=== PATIENT | female | born 1940 | race Caucasian/White ===

== ENCOUNTER 2018-10-26 08:16 | Day surgery (SDC) | payer OTHER, BC ==
[2018-10-23 17:26] VITALS: BMI 32.9
[2018-10-26 09:23] LABS: BASO % 0.5 % (0-2.0); EOS % 0.9 % (0-4.5); HEMATOCRIT 40.4 % (32.4-45.2); HEMOGLOBIN 13.8 GM/dL (10.7-15.3); LYMPH % 38.5 % (8-40); MCH 30.8 pg (25.7-33.7); MCHC 34.1 g/dl (32.0-36.0); MEAN CELL VOLUME 90.2 fl (80-96); MONO % 8.1 % (3.8-10.2); PLATELET COUNT 209 K/MM3 (134-434); RBC 4.48 M/mm3 (3.60-5.2); RDW 13.1 % (11.6-15.6); WHITE BLOOD COUNT 4.3 K/mm3 (4.0-10.0)
[2018-10-26 09:49] LABS: INR 1.02 (0.83-1.09)
[2018-10-26 13:39] VITALS: TEMP 97.3
[2018-10-26 14:43] VITALS: BP 121/55; PULSE 80
[2018-10-26 15:39] LABS: CSF APPEARANCE CLEAR; CSF COLOR COLORLESS; CSF WBC 2
[2018-10-26 15:52] LABS: BF GLUCOSE (CSF ONLY) 53 mg/dL (40-70)
== END 2018-10-26 14:40 | disposition home or self-care (01) ==
LOC: JRADIR 08:16
PROVIDERS: ATTEND Psychiatry & Neurology Neurology
PROC: 009U3ZX Drainage of Spinal Canal, Percutaneous Approach, Diagnostic (ICD-10-PCS; principal; 2018-10-26)
DX: R26.89 Other abnormalities of gait and mobility (principal)
CPT/HCPCS: 36415; 62270; 62272; 76000-TC-FY; 76098-TC-FY; 82945; 84157; 85025; 85610; 87070; 87205; 87899

== ENCOUNTER 2020-12-21 15:29 | Inpatient (IN) | payer OTHER, BC ==
[2020-12-21] MEDS ORDERED: ACETAMINOPHEN 1000 MG/100 ML VIAL IVPB ONE (16:11)
[2020-12-21] MEDS ORDERED: ACETAMINOPHEN INJECTION 100 ML IVPB ONE (16:32)
[2020-12-21 16:46] LABS: BASO % 2.9 % (0-2.0); EOS % 0.6 % (0-4.5); HEMATOCRIT 38.7 % (32.4-45.2); HEMOGLOBIN 12.5 GM/dl (10.7-15.3); LYMPH % 23.5 % (8-40); MCH 28.8 pg (25.7-33.7); MCHC 32.3 g/dl (32.0-36.0); MEAN PLT VOLUME 8.8 fl (7.5-11.1); MONO % 6.6 % (3.8-10.2); NEUT % 66.4 % (42.8-82.8); PLATELET COUNT 245 10^3/uL (134-434); RBC 4.35 M/mm3 (3.60-5.2); RDW 12.2 % (11.6-15.6); WHITE BLOOD COUNT 5.4 K/mm3 (4.0-10.8)
[2020-12-21 16:52] LABS: BILIRUBIN,TOTAL 0.8 mg/dl (0.2-1); CALCIUM 8.9 mg/dl (8.5-10); CREATININE 0.8 mg/dl (0.55-1.3); MAGNESIUM 2.2 mg/dL (1.8-2.4); TOT PROT 6.5 g/dl (6.4-8.2)
[2020-12-21] MEDS ORDERED: ACETAMINOPHEN 325 MG TABLET (FP) PO PRN (22:57)
[2020-12-22 01:07] VITALS: BMI 26.6
[2020-12-22 08:06] LABS: BASO % 4.2 % (0-2.0); EOS % 1.9 % (0-4.5); HEMATOCRIT 35.5 % (32.4-45.2); HEMOGLOBIN 12.1 GM/dl (10.7-15.3); LYMPH % 38.8 % (8-40); MCH 30.6 pg (25.7-33.7); MEAN PLT VOLUME 9.1 fl (7.5-11.1); MONO % 9.2 % (3.8-10.2); NEUT % 45.9 % (42.8-82.8); PLATELET COUNT 211 10^3/uL (134-434); RBC 3.94 M/mm3 (3.60-5.2); RDW 12.4 % (11.6-15.6); WHITE BLOOD COUNT 3.8 K/mm3 (4.0-10.8)
[2020-12-22 08:31] LABS: ALBUMIN 3.4 g/dl (3.4-5.0); ALK PHOS 57 U/L (45-117); ANION GAP 6 MMOL/L (8-16); CALCIUM 8.7 mg/dl (8.5-10); CHLORIDE 103 mmol/L (98-107); CHOLESTEROL 206 mg/dl (50-200); CO2 27 mmol/L (21-32); CREATININE 0.6 mg/dl (0.55-1.3); GLUCOSE,RANDOM 84 mg/dl (74-106); HDL CHOLESTEROL 65 mg/dl (40-60); LDL CHOLESTEROL (ONLY DFH) 128 mg/dl (5-100); SGOT/AST 13 U/L (15-37); SGPT/ALT 12 U/L (13-61); SODIUM 136 mmol/L (136-145); TOT PROT 5.9 g/dl (6.4-8.2); TRIGLYCERIDES 67 mg/dl (0-150)
[2020-12-22] MEDS: LOSARTAN POTASSIUM 50 MG TABLET PO SCH (09:55)
[2020-12-22] MEDS ORDERED: ACETAMINOPHEN 325 MG TABLET (FP) PO PRN (10:09)
[2020-12-22] MEDS ORDERED: ENOXAPARIN NA (PORCINE) 30 MG/0.3 ML DISP.SYRIN SQ SCH ×2 (10:15→10:30)
[2020-12-22] MEDS ORDERED: ENOXAPARIN NA (PORCINE) 40 MG/0.4 ML DISP.SYRIN SQ SCH (10:30)
[2020-12-22] MEDS: MONTELUKAST NA 10 MG TABLET PO SCH (10:35)
[2020-12-22] MEDS: SODIUM CHLORIDE 1,000 ML IV SCH (12:28)
[2020-12-23 08:26] LABS: CALCIUM 8.8 mg/dl (8.5-10); CREATININE 0.6 mg/dl (0.55-1.3)
[2020-12-23] MEDS: MONTELUKAST NA 10 MG TABLET PO SCH (09:40)
[2020-12-23] MEDS: LOSARTAN POTASSIUM 50 MG TABLET PO SCH (09:40)
[2020-12-23] MEDS: SODIUM CHLORIDE 1,000 ML IV SCH (09:41)
[2020-12-23] MEDS: ENOXAPARIN NA (PORCINE) 40 MG/0.4 ML DISP.SYRIN SQ SCH (16:18)
[2020-12-24 09:50] LABS: BASO % 3.3 % (0-2.0); EOS % 1.8 % (0-4.5); HEMATOCRIT 37.8 % (32.4-45.2); HEMOGLOBIN 12.2 GM/dl (10.7-15.3); LYMPH % 41.1 % (8-40); MCH 29.4 pg (25.7-33.7); MCHC 32.3 g/dl (32.0-36.0); MEAN CELL VOLUME 91.1 fl (80-96); MEAN PLT VOLUME 9.5 fl (7.5-11.1); MONO % 9.8 % (3.8-10.2); PLATELET COUNT 217 10^3/uL (134-434); RBC 4.15 M/mm3 (3.60-5.2); RDW 12.4 % (11.6-15.6); WHITE BLOOD COUNT 4.6 K/mm3 (4.0-10.8)
[2020-12-24] MEDS: ENOXAPARIN NA (PORCINE) 40 MG/0.4 ML DISP.SYRIN SQ SCH (09:53)
[2020-12-24] MEDS: MONTELUKAST NA 10 MG TABLET PO SCH (09:53)
[2020-12-24] MEDS: LOSARTAN POTASSIUM 50 MG TABLET PO SCH (10:30)
[2020-12-24 10:42] LABS: ALBUMIN 3.3 g/dl (3.4-5.0); BILIRUBIN,TOTAL 0.5 mg/dl (0.2-1); CALCIUM 8.7 mg/dl (8.5-10); CREATININE 0.7 mg/dl (0.55-1.3); MAGNESIUM 2.2 mg/dL (1.8-2.4); TOT PROT 5.7 g/dl (6.4-8.2)
[2020-12-25 06:48] VITALS: BP 118/58; PULSE 67; TEMP 97.5
[2020-12-25] MEDS: ENOXAPARIN NA (PORCINE) 40 MG/0.4 ML DISP.SYRIN SQ SCH (09:46)
[2020-12-25] MEDS: LOSARTAN POTASSIUM 50 MG TABLET PO SCH (09:47)
[2020-12-25] MEDS: MONTELUKAST NA 10 MG TABLET PO SCH (09:47)
== END 2020-12-25 11:30 | DRG 312 ==
LOC: FER 15:29 → FM/S 18:00 → UNDOADMOB 18:00 → FER 12-22 10:50 → FM/S 12-22 10:52 → UNDOADMIN 12-22 12:26
PROVIDERS: ADMIT Internal Medicine Cardiovascular Disease; ATTEND Nurse Practitioner Acute Care
DX: R55 Syncope and collapse (principal); I62.03 Nontraumatic chronic subdural hemorrhage; I10 Essential (primary) hypertension; E78.5 Hyperlipidemia, unspecified; K21.9 Gastro-esophageal reflux disease without esophagitis; J44.9 Chronic obstructive pulmonary disease, unspecified; M25.511 Pain in right shoulder
CPT/HCPCS: 36415; 70450-TC; 71046-TC-FY; 72125-TC; 72170-TC-FY; 73030-TC-RT-FY; 73060-TC-RT-FY; 80048; 80053; 80061; 81003; 82550; 82607; 83735; 84443; 84484; 85025; 87086; 93005; 93306-TC; 93880-TC; 97116-GP; 97163-GP; 99285-25; C9803; J0131; U0003; U0005

== ENCOUNTER 2022-03-16 10:49 | Emergency (ER) | payer OTHER, BC ==
[2022-03-16 11:13] VITALS: TEMP 97.3; BMI 29.6
[2022-03-16] MEDS ORDERED: ACETAMINOPHEN 500 MG TABLET (FP) PO ONE (11:35)
[2022-03-16] MEDS ORDERED: ACETAMINOPHEN 500 MG TABLET (FP) ONE (12:43)
[2022-03-16 13:10] LABS: BASO % 0.3 % (0-2.0); EOS % 0.5 % (0-4.5); HEMATOCRIT 38.2 % (32.4-45.2); HEMOGLOBIN 12.8 GM/dL (10.7-15.3); LYMPH % 23.7 % (8-40); MCH 30.8 pg (25.7-33.7); MCHC 33.5 g/dl (32.0-36.0); MEAN CELL VOLUME 91.9 fl (80-96); MEAN PLT VOLUME 8.6 fl (7.5-11.1); NEUT % 69.5 % (42.8-82.8); PLATELET COUNT 252 10^3/uL (134-434); RBC 4.16 M/mm3 (3.60-5.2); RDW 12.4 % (11.6-15.6)
[2022-03-16 13:16] LABS: INR 1.01 (0.83-1.09); PROTHROMBIN TIME (PATIENT) 11.6 SEC (9.7-13.0)
[2022-03-16 13:18] LABS: ACTIVATED PTT 31.4 SECONDS (25.2-36.5)
[2022-03-16 13:24] LABS: EPI CELLS 24 /uL (0-25.1); HYALINE CASTS 1 /uL (0-3.1); URINE APPEARANCE CLEAR; URINE BILIRUBIN NEGATIVE (NEGATIVE); URINE COLOR YELLOW; URINE GLUCOSE (UA) NEGATIVE (NEGATIVE); URINE KETONE NEGATIVE (NEGATIVE); URINE LEUK ESTERASE 2+ (NEGATIVE); URINE NITRITE POSITIVE (NEGATIVE); URINE PROTEIN NEGATIVE (NEGATIVE); URINE RBC 4 /uL (0-23.9); URINE UROBILINOGEN 0.2 mg/dL (0.2-1.0); URINE WBC 95 /uL (0-25.8)
[2022-03-16 13:30] LABS: ALBUMIN 3.7 g/dl (3.4-5.0); BLOOD UREA NITROGEN 19.8 mg/dL (7-18)
[2022-03-16 13:31] LABS: CALCIUM 9.3 mg/dL (8.5-10.1); MAGNESIUM 2.4 mg/dL (1.8-2.4)
[2022-03-16 13:35] LABS: URINE BACTERIA MANY /uL (0-1359)
[2022-03-16 13:35] LABS: CREATININE 0.7 mg/dL (0.55-1.3)
[2022-03-16 13:36] LABS: BILIRUBIN,TOTAL 0.6 mg/dL (0.2-1)
[2022-03-16] MEDS ORDERED: CEFTRIAXONE 1,000 MG in DEXTROSE 5%-WATER - 50 ML IVPB ONE (13:47)
[2022-03-16] MEDS ORDERED: CEFTRIAXONE 1 GM/50 ML BAG ONE (14:34)
[2022-03-16 20:40] VITALS: RESP 16
[2022-03-17 04:39] VITALS: BP 121/73; PULSE 70
== END 2022-03-16 22:49 | disposition home or self-care (01) ==
LOC: JER 10:49
DX: M25.511 Pain in right shoulder (principal); N39.0 Urinary tract infection, site not specified; W06.XXXA Fall from bed, initial encounter
CPT/HCPCS: 0241U-QW; 36415; 70450-TC; 71045-TC-FY; 72125-TC; 72170-TC-FY; 73030-TC-RT-FY; 80053; 81003; 82550; 82553; 83735; 85025; 85610; 85730; 86850; 86900; 86901; 87086; 87186; 93005; 93010; 99285-25

== ENCOUNTER 2023-02-07 16:02 | Observation (INO) | payer OTHER, BC ==
[2023-02-07] MEDS ORDERED: LORazepam 2 MG/ML SDV VIAL IM ONE (17:02)
[2023-02-07] MEDS ORDERED: HALOPERIDOL LACTATE 5 MG/ML IM ONE (17:02)
[2023-02-07] MEDS ORDERED: HALOPERIDOL LACTATE 5 MG/ML ONE (17:03)
[2023-02-07 18:32] LABS: BASO % 0.3 % (0-2.0); EOS % 0.4 % (0-4.5); HEMATOCRIT 37.4 % (32.4-45.2); HEMOGLOBIN 12.6 GM/dL (10.7-15.3); LYMPH % 19.6 % (8-40); MCH 30.1 pg (25.7-33.7); MCHC 33.8 g/dl (32.0-36.0); MEAN CELL VOLUME 89.1 fl (80-96); MEAN PLT VOLUME 8.6 fl (7.5-11.1); MONO % 5.6 % (3.8-10.2); NEUT % 74.1 % (42.8-82.8); PLATELET COUNT 242 10^3/uL (134-434); RBC 4.19 M/mm3 (3.60-5.2); RDW 12.9 % (11.6-15.6); WHITE BLOOD COUNT 6.8 K/mm3 (4.0-10.0)
[2023-02-07 18:40] LABS: INR 1.03 (0.83-1.09); PROTHROMBIN TIME (PATIENT) 11.9 SEC (9.7-13.0)
[2023-02-07 18:42] LABS: ACTIVATED PTT 30.1 SECONDS (25.2-36.5)
[2023-02-07 19:02] LABS: POTASSIUM 4.1 mmol/L (3.5-5.1)
[2023-02-07 19:04] LABS: CALCIUM 8.9 mg/dL (8.5-10.1)
[2023-02-07 19:05] LABS: ALBUMIN 3.2 g/dl (3.4-5.0); BLOOD UREA NITROGEN 20.3 mg/dL (7-18)
[2023-02-07 19:08] LABS: CREATININE 0.7 mg/dL (0.55-1.3)
[2023-02-07 19:09] LABS: BILIRUBIN,TOTAL 0.5 mg/dL (0.2-1); TOT PROT 6.8 g/dl (6.4-8.2)
[2023-02-07 19:11] LABS: N-TERMINAL BNP 123.8 pg/ml (5-450)
[2023-02-07 20:46] LABS: EPI CELLS 7 /uL (0-25.1); HYALINE CASTS 1 /uL (0-3.1); PH,URINE 6.5 (5.0-8.0); URINE APPEARANCE CLOUDY; URINE BACTERIA 1903 /uL (0-1359); URINE BILIRUBIN NEGATIVE (NEGATIVE); URINE COLOR YELLOW; URINE GLUCOSE (UA) NEGATIVE (NEGATIVE); URINE KETONE NEGATIVE (NEGATIVE); URINE LEUK ESTERASE 3+ (NEGATIVE); URINE NITRITE POSITIVE (NEGATIVE); URINE PROTEIN NEGATIVE (NEGATIVE); URINE RBC 67 /uL (0-23.9); URINE WBC 1947 /uL (0-25.8)
[2023-02-07] MEDS ORDERED: CEFTRIAXONE 1,000 MG in DEXTROSE 5%-WATER - 50 ML IVPB ONE (21:20)
[2023-02-07] MEDS ORDERED: cefTRIAXone SODIUM 1 GM VIAL ONE (21:33)
[2023-02-08] MEDS: ATORVASTATIN CA 10 MG TABLET (FP) PO SCH ×2 (05:38→21:54)
[2023-02-08] MEDS: SIMETHICONE 80 MG TAB.CHEW (FP) PO SCH ×3 (05:39→21:55)
[2023-02-08 07:29] VITALS: BMI 30.4
[2023-02-08 09:32] LABS: BASO % 0.2 % (0-2.0); EOS % 0.6 % (0-4.5); HEMATOCRIT 36.4 % (32.4-45.2); HEMOGLOBIN 12.6 GM/dL (10.7-15.3); LYMPH % 26.3 % (8-40); MCH 30.6 pg (25.7-33.7); MCHC 34.7 g/dl (32.0-36.0); MEAN CELL VOLUME 88.1 fl (80-96); MEAN PLT VOLUME 8.2 fl (7.5-11.1); MONO % 6.3 % (3.8-10.2); NEUT % 66.6 % (42.8-82.8); PLATELET COUNT 245 10^3/uL (134-434); RBC 4.13 M/mm3 (3.60-5.2); RDW 12.9 % (11.6-15.6); WHITE BLOOD COUNT 6.2 K/mm3 (4.0-10.0)
[2023-02-08 09:50] LABS: POTASSIUM 3.7 mmol/L (3.5-5.1)
[2023-02-08 09:53] LABS: ALBUMIN 3.2 g/dl (3.4-5.0); BLOOD UREA NITROGEN 17.1 mg/dL (7-18); CALCIUM 9.1 mg/dL (8.5-10.1)
[2023-02-08 09:56] LABS: CREATININE 0.6 mg/dL (0.55-1.3)
[2023-02-08 09:58] LABS: BILIRUBIN,TOTAL 0.6 mg/dL (0.2-1); TOT PROT 6.4 g/dl (6.4-8.2)
[2023-02-08] MEDS: POTASSIUM CHLORIDE TABS 10 MEQ TABLET.ER (FP) PO SCH (11:38)
[2023-02-08] MEDS: FAMOTIDINE 20 MG TABLET PO SCH (11:38)
[2023-02-08] MEDS: LOSARTAN POTASSIUM 50 MG TABLET PO SCH (11:38)
[2023-02-08] MEDS: CEFTRIAXONE 1 GM in DEXTROSE 5%-WATER - 50 ML IVPB SCH (14:05)
[2023-02-08] MEDS: CHLORTHALIDONE 25 MG TABLET PO SCH (16:44)
[2023-02-08] MEDS: ACETAMINOPHEN 325 MG TABLET (FP) PO PRN (21:54)
[2023-02-08] MEDS: MELATONIN 1 MG TABLET PO SCH (21:54)
[2023-02-08] MEDS: NYSTATIN 100,000 UNIT/GM TOPICAL CREAM 15 GM TUBE TP SCH (21:55)
[2023-02-08] MEDS: MONTELUKAST NA 10 MG TABLET PO SCH (21:55)
[2023-02-09] MEDS: SIMETHICONE 80 MG TAB.CHEW (FP) PO SCH ×3 (06:29→21:49)
[2023-02-09] MEDS: CEFTRIAXONE 1 GM in DEXTROSE 5%-WATER - 50 ML IVPB SCH (10:08)
[2023-02-09] MEDS: NYSTATIN 100,000 UNIT/GM TOPICAL CREAM 15 GM TUBE TP SCH ×2 (10:10→21:49)
[2023-02-09] MEDS: POTASSIUM CHLORIDE TABS 10 MEQ TABLET.ER (FP) PO SCH (10:10)
[2023-02-09] MEDS: LOSARTAN POTASSIUM 50 MG TABLET PO SCH (10:10)
[2023-02-09] MEDS: CHLORTHALIDONE 25 MG TABLET PO SCH (10:10)
[2023-02-09] MEDS: FAMOTIDINE 20 MG TABLET PO SCH (10:10)
[2023-02-09] MEDS: ATORVASTATIN CA 10 MG TABLET (FP) PO SCH (21:49)
[2023-02-09] MEDS: MONTELUKAST NA 10 MG TABLET PO SCH (21:49)
[2023-02-09] MEDS: MELATONIN 1 MG TABLET PO SCH (21:49)
[2023-02-10] MEDS: ACETAMINOPHEN 325 MG TABLET (FP) PO PRN (04:58)
[2023-02-10] MEDS: SIMETHICONE 80 MG TAB.CHEW (FP) PO SCH ×3 (05:08→22:12)
[2023-02-10] MEDS: CHLORTHALIDONE 25 MG TABLET PO SCH (09:12)
[2023-02-10] MEDS: POTASSIUM CHLORIDE TABS 10 MEQ TABLET.ER (FP) PO SCH (09:12)
[2023-02-10] MEDS: FAMOTIDINE 20 MG TABLET PO SCH (09:12)
[2023-02-10] MEDS: LOSARTAN POTASSIUM 50 MG TABLET PO SCH (09:12)
[2023-02-10] MEDS: NYSTATIN 100,000 UNIT/GM TOPICAL CREAM 15 GM TUBE TP SCH ×2 (10:05→22:12)
[2023-02-10] MEDS: CEFTRIAXONE 1 GM in DEXTROSE 5%-WATER - 50 ML IVPB SCH (10:06)
[2023-02-10] MEDS ORDERED: FLU VACCINE (FLULAVAL) PF 60 MCG/0.5 ML SYRINGE 2023-2024 IM ONE (22:00)
[2023-02-10] MEDS: ATORVASTATIN CA 10 MG TABLET (FP) PO SCH (22:11)
[2023-02-10] MEDS: MELATONIN 1 MG TABLET PO SCH (22:11)
[2023-02-10] MEDS: MONTELUKAST NA 10 MG TABLET PO SCH (22:12)
[2023-02-11] MEDS: SIMETHICONE 80 MG TAB.CHEW (FP) PO SCH ×2 (06:01→14:31)
[2023-02-11] MEDS: POTASSIUM CHLORIDE TABS 10 MEQ TABLET.ER (FP) PO SCH ×2 (10:07→14:33)
[2023-02-11] MEDS: CHLORTHALIDONE 25 MG TABLET PO SCH (10:07)
[2023-02-11] MEDS: LOSARTAN POTASSIUM 50 MG TABLET PO SCH (10:07)
[2023-02-11] MEDS: FAMOTIDINE 20 MG TABLET PO SCH (10:07)
[2023-02-11] MEDS: CEFTRIAXONE 1 GM in DEXTROSE 5%-WATER - 50 ML IVPB SCH (10:07)
[2023-02-11] MEDS: NYSTATIN 100,000 UNIT/GM TOPICAL CREAM 15 GM TUBE TP SCH (10:08)
[2023-02-11 15:13] VITALS: BP 134/70; PULSE 85; RESP 20; TEMP 98
== END 2023-02-11 16:54 ==
LOC: JER 16:02 → JERBED 22:25 → J7W 02-08 03:07
PROVIDERS: ADMIT Specialist; ATTEND Specialist
PROC: 3E03329 Introduction of Other Anti-infective into Peripheral Vein, Percutaneous Approach (ICD-10-PCS; principal; 2023-02-07)
PROC: 3E023GC Introduction of Other Therapeutic Substance into Muscle, Percutaneous Approach (ICD-10-PCS; 2023-02-07)
PROC: 3E023NZ Introduction of Analgesics, Hypnotics, Sedatives into Muscle, Percutaneous Approach (ICD-10-PCS; 2023-02-07)
PROC: 0HQ0XZZ Repair Scalp Skin, External Approach (ICD-10-PCS; 2023-02-07)
DX: S06.0X0A Concussion without loss of consciousness, initial encounter (principal); F03.90 Unspecified dementia, unspecified severity, without behavioral disturbance, psychotic disturbance, mood disturbance, and anxiety; I10 Essential (primary) hypertension; K21.9 Gastro-esophageal reflux disease without esophagitis; E78.5 Hyperlipidemia, unspecified; Z87.820 Personal history of traumatic brain injury; R29.6 Repeated falls; N39.0 Urinary tract infection, site not specified; H66.90 Otitis media, unspecified, unspecified ear; X58.XXXA Exposure to other specified factors, initial encounter; Y93.89 Activity, other specified; Y92.89 Other specified places as the place of occurrence of the external cause; Z87.891 Personal history of nicotine dependence
CPT/HCPCS: 12002-25; 36415; 70450-TC; 71045-TC-FY; 72125-TC; 72170-TC-FY; 73030-TC-RT-FY; 80053; 81003; 82962; 83605; 83690; 83880; 84484; 85025; 85610; 85730; 87086; 87186; 87635; 90686; 93005; 93010; 96365; 96366; 96372; 97116-GP; 97161-GP; 99285-25; G0378